=== PATIENT | female | born 1955 | race Caucasian/White ===

== ENCOUNTER 2023-01-30 11:17 | Outpatient (CLI) | payer MEDICARE, OTHER | END 2023-01-30 11:18 | disposition home or self-care (01) | LOC: CSHMAMMO 11:17 | PROVIDERS: ATTEND Internal Medicine | DX: Z13.820 Encounter for screening for osteoporosis (principal); M81.0 Age-related osteoporosis without current pathological fracture; M85.89 Other specified disorders of bone density and structure, multiple sites | CPT/HCPCS: 77080 ==